=== PATIENT | male | born 1995 | race Hispanic/Latino ===

== ENCOUNTER 2017-10-15 02:33 | Emergency (ER) | payer SELFPAY ==
[2017-10-15] MEDS ORDERED: Loperamide HCl 2 MG CAP ONE (02:55)
[2017-10-15] MEDS ORDERED: Sodium Chloride 0.9% 1,000 ML ONE (02:55)
[2017-10-15 03:09] LABS: #Basophils 0.1 thou/uL (0.0-0.2); #Eosinphils 0.1 thou/uL (0.0-0.7); #Lymphocytes 2.9 thou/uL (1.20-3.40); #Monocytes 0.5 thou/uL (0.11-0.59); #Neutrophils 5.7 thou/uL (1.40-6.50); %Basophils 1.1 % (0.0-1.0); %Eosinophils 1.2 % (0.0-10.0); %Lymphocytes 30.6 % (21.0-51.0); %Monocytes 5.4 % (0.0-10.0); %Neutrophils 61.7 % (42.0-75.0); Hemoglobin 16.1 g/dL (14.0-18.0); Mean Corpuscular HGB CONC 32.8 g/dL (32.0-36.0); Mean Corpuscular Hemoglobin 27.7 pg (27.0-31.0); Mean Corpuscular Volume 84.4 fl (80.0-94.0); Mean Platelet Volume 11.3 fL (7.4-10.4); Platelet Count 209 thou/uL (130-400); RBC Distribution Width 11.5 % (11.5-14.5); Red Blood Cell (RBC) Count 5.82 mill/uL (4.70-6.10); White Blood Cell (WBC) Count 9.3 thou/uL (4.8-10.8)
[2017-10-15 03:28] LABS: ALT (SGPT) 114 U/L (8-55); AST (SGOT) 46 U/L (5-34); Albumin 4.7 g/dL (3.5-5.0); Alkaline Phosphatase 88 U/L (40-150); Anion Gap 16 mmol/L (10-20); BUN (Urea Nitrogen) 15 mg/dL (8.9-20.6); Bilirubin, Total 0.7 mg/dL (0.2-1.2); Calc. Creatinine Clearance 0 mL/min (70-130); Calcium 9.2 mg/dL (7.8-10.44); Carbon Dioxide 23 mmol/L (22-29); Chloride 104 mmol/L (98-107); Estimated GFR-MDRD Greater than 90; Globulin 3.4 g/dL (2.4-3.5); Glucose 134 mg/dL (70-105); Protein, Total 8.1 g/dL (6.0-8.3); Sodium 139 mmol/L (136-145)
[2017-10-15] MEDS ORDERED: Sodium Chloride 0.9% 2,000 ML ONE (04:04)
== END 2017-10-15 04:40 | disposition home or self-care (01) ==
LOC: NAV ERS 02:33
DX: K52.9 Noninfective gastroenteritis and colitis, unspecified (principal)
CPT/HCPCS: 36415; 80053; 85025; 96360; J7050

== ENCOUNTER 2018-09-06 11:19 | Emergency (ER) | payer SELFPAY ==
--- NOTE | 2018-09-06 11:54 | RAD ---
Chest 2 views HISTORY: Chest pain. Dyspnea. FINDINGS: No comparison. Cardiac silhouette and pulmonary vasculature are unremarkable. Mediastinum i s midline. No confluent airspace consolidation, pneumothorax, or pleural fluid are apparent. IMPRESSION: No active cardiopulmonary abnormalities are demonstrated.
== END 2018-09-06 12:20 | disposition home or self-care (01) ==
LOC: NAV ERS 11:19
DX: J20.9 Acute bronchitis, unspecified (principal); I10 Essential (primary) hypertension
CPT/HCPCS: 71046; 93005

== ENCOUNTER 2019-02-27 17:47 | Emergency (ER) | payer SELFPAY | END 2019-02-27 18:40 | disposition home or self-care (01) | LOC: NAV ERS 17:47 | DX: A46 Erysipelas (principal) | CPT/HCPCS: 99282 ==

== ENCOUNTER 2019-09-03 22:39 | Emergency (ER) | payer SELFPAY ==
[2019-09-03] MEDS ORDERED: Lorazepam 2 MG/ML VIAL ONE (23:02)
== END 2019-09-03 23:27 | disposition home or self-care (01) ==
LOC: NAV ERS 22:39
DX: F41.9 Anxiety disorder, unspecified (principal)
CPT/HCPCS: 93005; 96372; J2060

== ENCOUNTER 2019-09-07 19:36 | Emergency (ER) | payer SELFPAY ==
[2019-09-07 20:34] LABS: #Basophils 0.1 thou/uL (0.0-0.2); #Eosinphils 0.1 thou/uL (0.0-0.7); #Lymphocytes 3.1 thou/uL (1.20-3.40); #Monocytes 0.5 thou/uL (0.11-0.59); #Neutrophils 4.4 thou/uL (1.40-6.50); %Basophils 1.1 % (0.0-1.0); %Eosinophils 1.7 % (0.0-10.0); %Lymphocytes 37.8 % (21.0-51.0); %Monocytes 5.7 % (0.0-10.0); %Neutrophils 53.7 % (42.0-75.0); Hemoglobin 16.3 g/dL (14.0-18.0); Mean Corpuscular HGB CONC 33.2 g/dL (32.0-36.0); Mean Corpuscular Hemoglobin 28.9 pg (27.0-31.0); Mean Corpuscular Volume 86.8 fL (78.0-98.0); Mean Platelet Volume 12.4 fL (7.4-10.4); Platelet Count 207 thou/uL (130-400); RBC Distribution Width 11.4 % (11.5-14.5); Red Blood Cell (RBC) Count 5.65 mill/uL (4.70-6.10); White Blood Cell (WBC) Count 8.1 thou/uL (4.8-10.8)
[2019-09-07 20:41] LABS: ALT (SGPT) 154 U/L (8-55); AST (SGOT) 58 U/L (5-34); Albumin 5.2 g/dL (3.5-5.0); Alkaline Phosphatase 98 U/L (40-110); Anion Gap 17 mmol/L (10-20); BUN (Urea Nitrogen) 12 mg/dL (8.9-20.6); Bilirubin, Total 0.5 mg/dL (0.2-1.2); CK (CPK) 81 U/L (30-200); Calc. Creatinine Clearance 0 mL/min (70-130); Calcium 9.7 mg/dL (7.8-10.44); Carbon Dioxide 23 mmol/L (22-29); Chloride 103 mmol/L (98-107); Estimated GFR-MDRD 90; Globulin 3.1 g/dL (2.4-3.5); Glucose 105 mg/dL (70-105); Potassium 3.9 mmol/L (3.5-5.1); Protein, Total 8.3 g/dL (6.0-8.3); Sodium 139 mmol/L (136-145)
== END 2019-09-07 21:15 | disposition home or self-care (01) ==
LOC: NAV ERS 19:36
DX: F41.9 Anxiety disorder, unspecified (principal)
CPT/HCPCS: 36415; 80053; 82550; 84484; 85025; 85379; 93005

== ENCOUNTER 2019-11-05 13:02 | Emergency (ER) | payer OTHER, SELFPAY ==
[2019-11-05] MEDS ORDERED: Acetaminophen 500 MG TAB ONE (14:04)
== END 2019-11-05 14:09 | disposition home or self-care (01) ==
LOC: NAV ERS 13:02
DX: U07.1 COVID-19 (principal); F41.9 Anxiety disorder, unspecified
CPT/HCPCS: 87635; 99283; U0003

== ENCOUNTER 2019-11-17 22:17 | Emergency (ER) | payer SELFPAY ==
--- NOTE | 2019-11-17 22:57 | RAD ---
Chest AP view INDICATION: Chest pain COMPARISON: September 06, 2018 FINDINGS: Lungs: The lungs are clear Cardiac silhouette: The cardiomediastinal silhouette appears within normal limits. Pulmonary vasculature: Normal Pleural spaces: No pleural effusion or pneumothorax is demonstrated. Upper abdomen: No abnormality seen. Osseous structures: No acute osseous abnormality. Additional findings: None. IMPRESSION: No acute cardiopulmonary abnormality.
[2019-11-17 23:01] LABS: #Basophils 0.1 thou/uL (0.0-0.2); #Eosinphils 0.1 thou/uL (0.0-0.7); #Lymphocytes 2.3 thou/uL (1.20-3.40); #Monocytes 0.6 thou/uL (0.11-0.59); #Neutrophils 5.4 thou/uL (1.40-6.50); %Eosinophils 1.2 % (0.0-10.0); %Lymphocytes 27.4 % (21.0-51.0); %Monocytes 6.8 % (0.0-10.0); %Neutrophils 63.7 % (42.0-75.0); Hemoglobin 15.2 g/dL (14.0-18.0); Mean Corpuscular HGB CONC 31.6 g/dL (32.0-36.0); Mean Corpuscular Hemoglobin 27.5 pg (27.0-31.0); Mean Platelet Volume 12.3 fL (7.4-10.4); Platelet Count 278 thou/uL (130-400); Red Blood Cell (RBC) Count 5.55 mill/uL (4.70-6.10); White Blood Cell (WBC) Count 8.5 thou/uL (4.8-10.8)
[2019-11-17 23:11] LABS: ALT (SGPT) 134 U/L (8-55); AST (SGOT) 55 U/L (5-34); Alkaline Phosphatase 107 U/L (40-110); Anion Gap 17 mmol/L (10-20); BUN (Urea Nitrogen) 8 mg/dL (8.9-20.6); Bilirubin, Total 0.6 mg/dL (0.2-1.2); CK (CPK) 80 U/L (30-200); Calc. Creatinine Clearance 0 mL/min (70-130); Calcium 9.7 mg/dL (7.8-10.44); Carbon Dioxide 24 mmol/L (22-29); Chloride 103 mmol/L (98-107); Estimated GFR-MDRD Greater than 90; Globulin 3.4 g/dL (2.4-3.5); Glucose 110 mg/dL (70-105); Lipase 26 U/L (8-78); Potassium 4.2 mmol/L (3.5-5.1); Protein, Total 8.4 g/dL (6.0-8.3); Sodium 140 mmol/L (136-145)
== END 2019-11-18 00:25 | disposition home or self-care (01) ==
LOC: NAV ERS 22:17
DX: R07.89 Other chest pain (principal); F41.9 Anxiety disorder, unspecified
CPT/HCPCS: 71045; 80053; 82550; 83690; 84484; 85025; 93005

== ENCOUNTER 2021-07-19 04:43 | Emergency (ER) | payer OTHER, SELFPAY ==
[2021-07-19] MEDS ORDERED: Boostrix 0.5 ML (Tdap) VIAL ONE (05:05)
[2021-07-19] MEDS ORDERED: Lidocaine 1% (PF) 30 ML VIAL ONE (05:05)
[2021-07-19] MEDS ORDERED: Cephalexin 250 MG CAP ONE (06:30)
[2021-07-19] MEDS ORDERED: Bacitracin 1 PK ONE (06:30)
== END 2021-07-19 06:45 | disposition home or self-care (01) ==
LOC: NAV ERS 04:43
DX: S01.311A Laceration without foreign body of right ear, initial encounter (principal); H73.891 Other specified disorders of tympanic membrane, right ear; X99.0XXA Assault by sharp glass, initial encounter; Y92.838 Other recreation area as the place of occurrence of the external cause; Z23 Encounter for immunization; Z86.16 Personal history of COVID-19
CPT/HCPCS: 12015; 90471; 90715; J2001

== ENCOUNTER 2023-05-07 21:35 | Emergency (ER) | payer SELFPAY ==
[2023-05-07] MEDS ORDERED: Ibuprofen 800 MG TAB ONE (22:13)
== END 2023-05-07 22:32 | disposition home or self-care (01) ==
LOC: NAV ERS 21:35
DX: M94.0 Chondrocostal junction syndrome [Tietze] (principal); I10 Essential (primary) hypertension

== ENCOUNTER 2023-07-11 09:33 | Emergency (ER) | payer SELFPAY ==
[2023-07-11] MEDS ORDERED: Ibuprofen 800 MG TAB ONE (09:59)
[2023-07-11] MEDS ORDERED: Cyclobenzaprine 10 MG TAB ONE (09:59)
== END 2023-07-11 10:02 | disposition home or self-care (01) ==
LOC: NAV ERS 09:33
DX: M54.2 Cervicalgia (principal); M62.838 Other muscle spasm; I10 Essential (primary) hypertension; Z86.16 Personal history of COVID-19
CPT/HCPCS: 99283